=== PATIENT | male | born 1980 | race Caucasian/White ===

== ENCOUNTER 2023-01-28 06:36 | Outpatient (OUT) | payer OTHER, SELFPAY ==
[2023-01-28 06:51] LABS: Basophils Absolute Auto 0.1 10^3/uL (0.0-0.1); Basophils Percent Auto 1.7 % (0.2-2.0); Eosinophils Absolute Auto 0.2 10^3/uL (0.0-0.7); Hematocrit 44.2 % (42.0-54.0); Hemoglobin 14.8 g/dL (14.0-18.0); Immature Granulocytes Abs Auto 0.02 10^3/uL (0.00-0.03); Immature Granulocytes Pct Auto 0.3 % (0.0-0.5); Lymphocytes Absolute Auto 2.1 10^3/uL (1.2-3.8); Lymphocytes Percent Auto 34.6 % (20.5-60.0); Mean Corpuscular HGB Conc 33.5 g/dL (29.9-35.2); Mean Corpuscular Volume 89.5 fL (80.0-94.0); Mean Platelet Volume 9.3 fL (9.5-13.5); Monocytes Absolute Auto 0.5 10^3/uL (0.3-0.8); Monocytes Percent Auto 8.1 % (1.7-12.0); Neutrophils Absolute Auto 3.1 10^3/uL (1.4-6.5); Neutrophils Percent Auto 52.3 % (43.0-75.0); Platelet Count 145 10^3/uL (150-450); Red Blood Count 4.94 10^6/uL (4.70-6.10); Red Cell Distribution Width 11.8 % (11.0-15.0); White Blood Count 5.9 10^3/uL (4.0-11.0)
[2023-01-28 07:00] LABS: Alanine Aminotransferase 25 U/L (16-63); Albumin Globulin Ratio 1.4; Albumin Level 4.2 g/dL (3.4-5.0); Alkaline Phosphatase 72 U/L (46-116); Anion Gap 7.2; Aspartate Amino Transferase 16 U/L (15-37); BUN Creatinine Ratio 21.1; Bilirubin Total 0.7 mg/dL (0.2-1.0); Calcium 8.7 mg/dL (8.5-10.1); Chloride 104 mmol/L (98-107); Chol HDL Ratio 4.2; Cholesterol 189 mg/dL (<=200); Estimated GFR (African America >60 (>=60); Estimated GFR (Non-African Ame >60 (>=60); Globulin 3.1 g/dL; Glucose 83 mg/dL (74-106); HDL Cholesterol 45 mg/dL (40-60); LDL Cholesterol Calculated 128.6 mg/dL; Potassium 4.2 mmol/L (3.5-5.1); Sodium 138 mmol/L (136-145); Total Protein 7.3 g/dL (6.4-8.2); Triglycerides 77 mg/dL (<=150); VLDL CHOLESTEROL 15.4 mg/dL
== END 2023-01-28 06:37 | disposition home or self-care (01) ==
LOC: LAB 06:36
PROVIDERS: PCP Internal Medicine; Visit Provider Internal Medicine
DX: Z00.00 Encounter for general adult medical examination without abnormal findings (principal)
CPT/HCPCS: 36415; 80053; 80061; 85025

== ENCOUNTER 2024-04-25 06:34 | Outpatient (OUT) | payer OTHER, SELFPAY ==
--- OUTSIDE RECORDS SUMMARY | 2024-04-25 06:37 | XMS_ITS | CCD ---
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 Name Role Phone PHYSICIAN, DEFAULT Unavailable Unavailable PHYSICIAN, DEFAULT Unavailable Unavailable MICHEL, ARJUN Unavailable Unavailable MICHEL, DR BUCKLEY Attending Unavailable BALL, DR BUCKLEY Admitting Unavailable BALL, DR BUCKLEY Primary Care Unavailable MICHEL, DR BUCKLEY Consulting Unavailable MICHEL, DR BUCKLEY Admitting Unavailable BALL, DR BUCKLEY Primary Care Unavailable MICHEL, DR BUCKLEY Consulting Unavailable MICHEL, DR BUCKLEY Attending Unavailable Michel, Arjun Unavailable Veronica Jacobson Unavailable Subha Mcclain Unavailable Arjun Pearson MD Primary Care Provider RAMMARCIN HARRISON Attending Unavailable RAMBASEK, MARCIN Ervin Attending Unavailable RAMBASEK, MARCIN Ervin Attending Unavailable RAMBASEK, MARCIN Ervin Attending Unavailable IRMA ORTIZ Attending Unavailable ARJUN PEARSON Referring Unavailable RAMBASEKMARCIN Attending Unavailable Allergies Allergy Classification Reported Allergen(s) Allergy Type Date of Onset Reaction(s) Facility (1 source) patient allergy list reviewed by nurse or physicia Propensity to adverse reactions 8 Comment:Done [employer] Other Medications Current Medications Medication Drug Class(es) Dates Sig (Normalized) Sig (Original) amoxicillin 875 mg / clavulanate 125 mg oral tablet (16 sources) Penicillin-class Antibacterial Start: 04-02-2024 End: 04-12-2024 take 1 tablet by mouth in the morning amoxicillin-clav ulanate (Augmentin) 875-125 MG tablet Indications: Acute maxillary sinusitis, 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 Take 1 tablet (875 mg) by mouth in the morning and 1 tablet (875 mg) before bedtime. Do all this for 10 days. 20 tablet 04/02/2024 04/12/2024 Active Start: 09-17-2022 take 1 tablet by monika th every twelve hours Amoxicillin-Pot Clavulanate 875-125 MG 1 tablet Orally every 12 hrs for 10 day(s) Sep, Not-Taking/PRN Start: 09-17-2022 take 1 tablet by monika th every twelve hours 1.5 ml fremanezumab-vfrm 150 mg/ml prefilled syringe (8 sources) Start: 04-24-2024 Fremanezumab-V frm (Ajovy Autoinjector) 225 mg/1.5 mL auto-injector Active 225 MG SUBCUT every month April 24, 2024 12:00am Start: 03-26-2024 fremanezumab ( Ajovy) 225 MG/1.5ML auto-injector Indications: Chronic migraine with aura and with status migrainosus, not intractable (CMS/HCC) Inject 1 pen (225 mg) under the skin every 30 (thirty) days 1.68 mL 11 03/26/2024 Active Completed/Discontinued Medications Medication Drug Class(es) Dates Sig (Normalized) Sig (Original) azithromycin 250 mg oral tablet (19 sources) Macrolide Antimicrobial Start: 07-20-2022 Azithromycin 250 MG as directed Orally daily for 5 days Jul, Not-Taking/PRN cefuroxime 250 mg oral tablet (20 sources) Cephalosporin Antibacterial Start: 10-05-2022 take 1 tablet by mouth every twelve hours Cefuroxime Axetil 250 MG 1 tablet Orally every 12 hrs for 14 days Sep, Not-Taking/PRN Start: 08-16-2022 take 1 tablet by monika th every twelve hours Cefuroxime Axetil 500 MG 1 tablet Orally every 12 hrs for 10 days Feb, Active doxycycline hyclate 100 mg oral capsule (17 sources) Tetracycline-class Drug Start: 09-07-2023 End: 03-13-2024 take 1 capsule by mouth twice daily Doxycycline Hyclate 100 mg capsule Discontinued 100 MG PO Twice daily 22 10September 06, 2023 11:00pm March 13, 2024 2:30pm loratadine 10 mg oral tablet (15 sources) Start: 03-13-2024 End: 03-13-2024 take 1 tablet by mouth once daily Loratadine (Claritin) 10 mg tablet Discontinued 10 MG PO Daily March 13, 2024 12:00am March 13, 2024 2:34pm metoprolol tartrate 25 mg oral tablet (4 sources) beta-Adrenergic Leo Start: 03-13-2024 End: 04-24-2024 take 1 tablet by mouth twice daily Metoprolol Tartrate 25 mg tablet Discontinued 25 MG PO Twice daily 60 30 March 13, 2024 12:00am April 24, 2024 9:32am omeprazole 40 mg delayed release oral capsule (13 sources) Proton Pump Inhibitor Start: 03-13-2024 End: 04-02-2024 take 1 capsule by mouth once daily Omeprazole 40 mg capsule,delayed release(DR/EC) Discontinued 40 MG PO Daily March 13, 2024 12:00am March 13, 2024 2:34pm rizatriptan 10 mg oral tablet (9 sources) Serotonin-1b and Serotonin-1d Receptor Agonist Start: 03-13-2024 End: 04-24-2024 take 1 tablet by mouth every two hours Rizatriptan 10 mg tablet Discontinued 0 PO .COMPLEX 7 March 13, 2024 12:00am April 24, 2024 9:32am take 1 tab at onset of headache; if no relief may repeat 1 tab after at least 2 hrs; max = 3 tabs/24 hr PO rizatriptan (Max alt) 10 MG tablet Take 10 mg by mouth 1 (one) time if needed for migraine May repeat in 2 hours if unresolved. Do not exceed 30 mg in 24 hours. Active Problems Active Problems Problem Classification Problem Date Documented Date Episodic/Chronic Cardiac dysrhythmias (12 sources) Premature beats; Translations: [Other premature beats] Onset: 10-10-2015 Chronic Coagulation and hemorrhagic disorders (9 sources) Primary thrombocytopenia; Translations: [Primary thrombocytopenia, unspecified] Onset: 12-13-2016 Chronic Esophageal disorders (6 sources) Gastro-esophageal reflux disease with esophagitis; Translations: [Gastro-esophageal reflux disease with esophagitis, without bleeding] Chronic Esophageal disorders (5 sources) Esophageal disorders; Translations: [Gastro-esophageal reflux disease with esophagitis, without bleeding] Headache; including migraine (6 sources) Transformed migraine; Translations: [Chronic migraine with aura and with status migrainosus, not intractable (CMS/HCC)] 03-20-2024 Chronic Heart valve disorders (4 sources) Mitral valve disorder; Translations: [Nonrheumatic mitral (valve) prolapse] Chronic Immunizations and screening for infectious disease (4 sources) Vaccination given; Translations: [Encounter for immunization] Episodic Other acquired deformities (1 source) Kyphoscoliosis and scoliosis; Translations: [Other kyphoscoliosis and scoliosis] Onset: 10-10-2013 Chronic Other congenital anomalies (1 source) Congenital spondylolysis of lumbosacral region; Translations: [Congenital spondylolysis, lumbosacral region] Onset: 02-16-2017 Chronic Other nervous system disorders (4 sources) Ataxia; Translations: [Ataxia, unspecified] 04-23-2024 Episodic Other nervous system disorders (4 sources) Paresthesia; Translations: [Paresthesia of skin] 04-23-2024 Episodic Other nervous system disorders (1 source) Paresthesia of skin; Translations: [Disturbance of skin sensation] 04-24-2024 Episodic Other upper respiratory disease (20 sources) Allergic rhinitis due to pollen; Translations: [Allergic rhinitis due to pollen] 06-03-2023 Chronic Other upper respiratory disease (20 sources) Allergic rhinitis due to pollen; Translations: [Allergic rhinitis due to pollen] Chronic Other upper respiratory disease (5 sources) Allergic rhinitis; Translations: [Allergic rhinitis, cause unspecified] Onset: 10-10-2015 Chronic Other upper respiratory infections (20 sources) Acute recurrent maxillary sinusitis; Translations: [Acute maxillary sinusitis, unspecified] Onset: 09-05-2013 Resolved: 11-23-2021 Episodic Residual codes; unclassified (4 sources) Postprocedural state finding; Translations: [Other specified postprocedural states] Episodic Spondylosis; intervertebral disc disorders; other back problems (15 sources) Lumbosacral spondylosis without myelopathy; Translations: [Spondylosis without myelopathy or radiculopathy, lumbar region] Chronic Unclassified (3 sources) CONTACT W/AND (SUSP) EXPOS COVID-19; Translations: [CONTACT W/AND (SUSP) EXPOS COVID-19] Onset: 05-15-2021 Unclassified (1 source) Sterilization procedure; Translations: [Sterilization] Onset: 05-22-2018 Past or Other Problems Problem Classification Problem Date Documented Da te Episodic/Chronic Allergic reactions (6 sources) Contact dermatitis; Translations: [Contact dermatitis and other eczema, due to unspecified cause] Onset: 10-28-2016 Episodic Bacterial infection; unspecified site (1 source) Bacterial infectious disease; Translations: [Bacterial infection, unspecified, in conditions classified elsewhere and of unspecified site] Onset: 12-09-2017 Episodic Cardiac dysrhythmias (4 sources) Palpitations; Translations: [Palpitations] Onset: 03-11-2014 Episodic Heart valve disorders (4 sources) O/E - cardiac murmur; Translations: [Cardiac murmur, unspecified] Onset: 03-11-2014 Episodic Other acquired deformities (4 sources) Acquired spondylolisthesis; Translations: [Spondylolysis, lumbar region] Resolved: 12-23-2021 Episodic Other connective tissue disease (1 source) Spasm; Translations: [Spasm of muscle] Onset: 02-03-2017 Episodic Skin and subcutaneous tissue infections (1 source) Cellulitis and abscess of hand excluding digits; Translations: [Cellulitis and abscess of hand, except fingers and thumb] Onset: 12-09-2017 Episodic Spondylosis; intervertebral disc disorders; other back problems (5 sources) Low back pain; Translations: [Low back pain, unspecified] Onset: 10-10-2013 Resolved: 11-23-2021 Episodic Unclassified (1 source) CONTACT W/AND (SUSP) EXPOS COVID-19; Translations: [CONTACT W/AND (SUSP) EXPOS COVID-19] Onset: 05-13-2021 Unclassified (4 sources) Exposure to acute respiratory syndrome coronavirus 2; Translations: [Contact with and (suspected) exposure to COVID-19] Resolved: 11-23-2021 Unclassified (1 source) Contact with and (suspected) exposure to covid-19 Z20.822 Viral infection (5 sources) Disease caused by 2019-nCoV; Translations: [COVID-19] Results Test Name Value Interpretation Reference Range Facility EMG 2 Extremitieson 04-24-19 25 Normal EMG of the right upper and lower extremity [facility] NVC 11-12 Nerveson 5 Normal EMG of the right upper and lower extremity [facility] COVID Quick Testingon 2022 Result Negative [employer] Other SARS-CoV-2 (COVID-19) RNA NA A+probe Ql (Resp)on 04-03-2023 SARS-CoV-2 (COVID-19) RNA TYRONE+probe Ql (Unsp spec) Positive [employer] Other CBC AUTO DIFFon 12-24-2021 BASO # 0.1 103/ul Normal 0.0-0.1 [facility] Comment on above: Performed By: #### C BC #### [facility] [address] [address] [address] Pam French Basophils/100 WBC (Bld) 1.5 % Normal 0.2-2.0 [facility] Comment on above: Performed By: #### C BC #### [facility] [address] [address] [address] Pam French EO # 0.2 103/ul Normal 0.0-0.7 [facility] Comment on above: Performed By: #### C BC #### [facility] [address] [address] [address] Pam French Eosinophils/100 WBC (Bld) 2.5 % Normal 0.9-7.0 [facility] Comment on above: Performed By: #### C BC #### [facility] [address] [address] [address] Pam French Erythrocyte distribution width (RBC) [Ratio] 12.3 % Normal 11.0-15.0 [facility] Comment on above: Performed By: #### C BC #### [facility] [address] [address] [address] Pam French Hematocrit (Bld) [Volume fraction] 44.0 % Normal 42.0-54.0 [facility] Comment on above: Performed By: #### C BC #### [facility] [address] [address] [address] Pam French Hemoglobin (Bld) [Mass/Vol] 14.5 g/dL Normal 14.0-18.0 [facility] Comment on above: Performed By: #### C BC #### [facility] [address] [address] [address] Pam French IG # 0.01 10e3/ul Normal 0.00-0.03 [facility] Comment on above: Performed By: #### C BC #### [facility] [address] [place] [address] Dr. Pam French IG % 0.2 % Normal 0.0-0.5 [facility] Comment on above: Performed By: #### C BC #### [facility] [address] [place] [address] Dr. Pam French LYMPH # 2.2 103/ul Normal 1.2-3.8 [facility] Comment on above: Performed By: #### C BC #### [facility] [address] [place] [address] Dr. Pam French Lymphocytes/100 WBC (Bld) 36.8 % Normal 20.5-60.0 [facility] Comment on above: Performed By: #### C BC #### [facility] [address] [place] [address] Dr. Pam French MANUAL DIFF REQ NO Normal [facility] Comment on above: Performed By: #### C BC #### [facility] [address] [place] [address] Dr. Pam French MCH (RBC) [Entitic mass] 29.7 pg Normal 25.9-34.0 [facility] Comment on above: Performed By: #### C BC #### [facility] [address] [place] [address] Dr. Pam French MCHC (RBC) [Mass/Vol] 33.0 g/dL Normal 29.9-35.2 [facility] Comment on above: Performed By: #### C BC #### [facility] [address] [place] [address] Dr. Pam French MCV (RBC) [Entitic vol] 90.2 fL Normal 80.0-94.0 [facility] Comment on above: Performed By: #### C BC #### [facility] [address] [place] [address] Dr. Pam French MONO # 0.6 103/ul Normal 0.3-0.8 [facility] Comment on above: Performed By: #### C BC #### [facility] [address] [address] [address] Pam French Monocytes/100 WBC (Bld) 9.7 % Normal 1.7-12.0 [facility] Comment on above: Performed By: #### C BC #### [facility] [address] [address] [address] Pam French NEUT # 3.0 103/ul Normal 1.4-6.5 [facility] Comment on above: Performed By: #### C BC #### [facility] [address] [address] [address] Pam French Neutrophils/100 WBC (Bld) 49.3 % Normal 43.0-75.0 [facility] Comment on above: Performed By: #### C BC #### [facility] [address] [place] [address] Dr. Pam French Platelet mean volume (Bld) [Entitic vol] 8.9 fL Critically low 9.5-13.5 [facility] Comment on above: Performed By: #### C BC #### [facility] [address] [place] [address] Dr. Pam French PLT 154 103/ul Normal 150-450 [facility] Comment on above: Performed By: #### C BC #### [facility] [address] [place] [address] Dr. Pam French RBC 4.88 106/ul Normal 4.70-6.10 [facility] Comment on above: Performed By: #### C BC #### [facility] [address] [place] [address] Dr. Pam French WBC 6.1 103/ul Normal 4.0-11.0 [facility] Comment on above: Performed By: #### C BC #### [facility] [address] [place] [address] Dr. Pam French LIPID PROFILEon 12-24-2021 CHOL-HDL RATIO NORM SEE BELOW Normal [facility] Comment on above: Result Comment: 3.3 - 4.4 LOW RISK 4.4 - 7.1 AVERAGE RISK 7.1 - 11.0 MODERATE RISK >11.0 HIGH RISK Performed By: #### C MP, LIPID #### [facility] [address] [address] [address] Pam French Cholesterol [Mass/Vol] 209 mg/dL Critically high <=200 [facility] Comment on above: Performed By: #### C MP, LIPID #### [facility] [address] [address] [address] Pam French Cholesterol in HDL [Mass/Vol] 42 mg/dL Normal 40-60 [facility] Comment on above: Performed By: #### C MP, LIPID #### [facility] [address] [address] [address] Pam French Cholesterol in LDL [Mass/Vol] 142.4 mg/dL Normal [facility] Comment on above: Performed By: #### C MP, LIPID #### [facility] [address] [place] [address] Dr. Pam French Cholesterol.total/C holesterol in HDL [Mass ratio] 5.0 {ratio} Normal [facility] Comment on above: Performed By: #### C MP, LIPID #### [facility] [address] [place] [address] Dr. Pam French HDL NORMAL > or = 60 mg/dl - LOW CARDIOVASCULAR RISK <40 mg/dl - HIGH CARDIOVASCULAR RISK Normal [facility] Comment on above: Performed By: #### C MP, LIPID #### [facility] [address] [place] [address] Dr. Pam French LDL CALC NORMAL SEE BELOW Normal [facility] Comment on above: Result Comment: <100 mg/dl OPTIMAL 100 - 129 mg/dl NEAR OR ABOVE OPTIMAL 130 - 159 mg/dl BORDERLINE HIGH 160 - 189 mg/dl HIGH >190 mg/dl VERY HIGH Performed By: #### C MP, LIPID #### [facility] [address] [place] [address] Dr. Pam French Triglyceride [Mass/Vol] 123 mg/dL Normal <=150 [facility] Comment on above: Performed By: #### C MP, LIPID #### [facility] [address] [place] [address] Dr. Pam French VLDL CALC 24.6 mg/dL Normal [facility] Comment on above: Performed By: #### C MP, LIPID #### [facility] [address] [place] [address] Dr. Pam French PROF 14(COMP METB)on 022 Albumin [Mass/Vol] 4.0 g/dL Normal 3.4-5.0 [facility] Comment on above: Performed By: #### C MP, LIPID #### [facility] [address] [place] [address] Dr. Pam French Albumin/Globulin [Mass ratio] 1.3 {ratio} Normal [facility] Comment on above: Performed By: #### C MP, LIPID #### [facility] [address] [place] [address] Dr. Pam French ALP [Catalytic activity/Vol] 66 U/L Normal 46-116 [facility] Comment on above: Performed By: #### C MP, LIPID #### [facility] [address] [place] [address] Dr. Pam French ALT [Catalytic activity/Vol] 29 U/L Normal 16-63 [facility] Comment on above: Performed By: #### C MP, LIPID #### [facility] [address] [place] [address] Dr. Pam French Anion gap [Moles/Vol] 9.4 mmol/L Normal [facility] Comment on above: Performed By: #### C MP, LIPID #### [facility] [address] [place] [address] Dr. Pam French AST [Catalytic activity/Vol] 16 U/L Normal 15-37 [facility] Comment on above: Performed By: #### C MP, LIPID #### [facility] [address] [place] [address] Dr. Pam French Bilirubin [Mass/Vol] 0.6 mg/dL Normal 0.2-1.0 [facility] Comment on above: Performed By: #### C MP, LIPID #### [facility] [address] [place] [address] Dr. Pam French Calcium [Mass/Vol] 8.9 mg/dL Normal 8.5-10.1 [facility] Comment on above: Performed By: #### C MP, LIPID #### [facility] [address] [place] [address] Dr. Pam French Chloride [Moles/Vol] 104 mmol/L Normal 98-107 [facility] Comment on above: Performed By: #### C MP, LIPID #### [facility] [address] [place] [address] Dr. Pam French CO2 [Moles/Vol] 30.5 mmol/L Normal 21.0-32.0 [facility] Comment on above: Performed By: #### C MP, LIPID #### [facility] [address] [place] [address] Dr. Pam French Creatinine [Mass/Vol] 1.08 mg/dL Normal 0.70-1.30 [facility] Comment on above: Performed By: #### C MP, LIPID #### [facility] [address] [place] [address] Dr. Pam French EGFR-AF MACEDONIAN >60 Normal >=60 [facility] Comment on above: Performed By: #### C MP, LIPID #### [facility] [address] [place] [address] Dr. Pam French EGFR-NON AF MACEDONIAN >60 Normal >=60 [facility] Comment on above: Performed By: #### C MP, LIPID #### [facility] [address] [place] [address] Dr. Pam French Globulin (S) [Mass/Vol] 3.0 g/dL Normal [facility] Comment on above: Performed By: #### C MP, LIPID #### [facility] [address] [place] [address] Dr. Pam French Glucose [Mass/Vol] 86 mg/dL Normal 74-106 [facility] Comment on above: Performed By: #### C MP, LIPID #### [facility] [address] [place] [address] Dr. Pam French Potassium [Moles/Vol] 3.9 mmol/L Normal 3.5-5.1 [facility] Comment on above: Performed By: #### C MP, LIPID #### [facility] [address] [place] [address] Dr. Pam French Protein [Mass/Vol] 7.0 g/dL Normal 6.4-8.2 [facility] Comment on above: Performed By: #### C MP, LIPID #### [facility] [address] [place] [address] Dr. Pam French Sodium [Moles/Vol] 140 mmol/L Normal 136-145 [facility] Comment on above: Performed By: #### C MP, LIPID #### [facility] [address] [place] [address] Dr. Pam French Urea nitrogen [Mass/Vol] 23.0 mg/dL Critically high 7.0-18.0 [facility] Comment on above: Performed By: #### C MP, LIPID #### [facility] [address] [place] [address] Dr. Pam French Urea nitrogen/Creatinine [Mass ratio] 21.3 mg/mg Normal [facility] Comment on above: Performed By: #### C MP, LIPID #### [facility] [address] [place] [address] Dr. Pam French [facility] SARS-CoV-2 (COVID-19) RNA TYRONE+probe Ql (Unsp spec) Not detected Normal NOT DETECTED [facility] Comment on above: Result Comment: This test is not yet approved or cleared by the [place] FDA. When there are no FDA-approved or cleared tests available, and other criteria are met, FDA can make tests available under an emergency access mechanism called an Emergency Use Authorization (EUA). The EUA for this test is supported by the [place] of Health and Human Service's (HHS's) declaration that circumstances exist to justify the emergency use of in vitro diagnostics for the detection and/or diagnosis of the virus that causes COVID-19. This EUA will remain in effect (meaning this test can be used) for the duration of the COVID-19 declaration justifying emergency of IVDs, unless it is terminated or revoked by FDA (after which the test may no longer be used). When diagnostic testing is negative, the possibility of a false negative should be considered in the context of a patient's recent exposures and the presence of clinical signs and symptoms consistent with SARS-CoV-2. Performed By: #### C [facility] #### [facility] [address] [place] [address] Dr. Pam French Vital Signs Date Time Vital Sign Value Performing Clinician Marki lity 04-24-2024 09:33-0500 Body height 185.42 cm [facility] 04-24-2024 09:33-0500 Body mass index (BMI) [Ratio] 21.7 kg/m2 [facility] 04-24-2024 09:33-0500 Body weight 74.89 kg [facility] 04-24-2024 09:33-0500 Diastolic blood pressure 72 mm[Hg] [facility] 04-24-2024 09:33-0500 Heart rate 59 /min [facility] 04-24-2024 09:33-0500 Respiratory rate 12 /min [facility] 04-24-2024 09:33-0500 Systolic blood pressure 116 mm[Hg] [facility] 04-23-2024 09:41-0500 Body mass index (BMI) [Ratio] 22.65 kg/m2 [email or web address] Work Phone: [facility] 04-23-2024 09:41-0500 Body weight 75.75 kg [email or web address] Work Phone: [facility] 04-23-2024 09:41-0500 Diastolic blood pressure 74 mm[Hg] [email or web address] Work Phone: [facility] 04-23-2024 09:41-0500 [facility] 63 /[facility] 04-23-2024 09:41-0500 SaO2% (BldA) [Mass fraction] 97 % Christopher Angel DO Work Phone: [facility] 04-23-2024 09:41-0500 Systolic blood pressure 120 mm[Hg] Christopher Angel DO Work Phone: [facility] 04-02-2024 15:35-0500 Body mass index (BMI) [Ratio] 21.97 kg/m2 Marcin Cannon MD Work Phone: [facility] 04-02-2024 15:35-0500 Body weight 73.48 kg Marcin Cannon MD Work Phone: [facility] 03-20-2024 10:48-0500 Diastolic blood pressure 68 mm[Hg] Christopher Angel DO Work Phone: [facility] 03-20-2024 10:48-0500 Heart rate 58 /min Christopher Angel DO Work Phone: [facility] 03-20-2024 10:48-0500 SaO2% (BldA) [Mass fraction] 97 % Christopher Angel DO Work Phone: [facility] 03-20-2024 10:48-0500 Systolic blood pressure 122 mm[Hg] Christopher Angel DO Work Phone: [facility] 03-13-2024 14:35-0500 Body height 185.42 cm [facility] 03-13-2024 14:35-0500 Body mass index (BMI) [Ratio] 21.4 kg/m2 [facility] 03-13-2024 14:35-0500 Body weight 73.53 kg [facility] 03-13-2024 14:35-0500 Diastolic blood pressure 74 mm[Hg] [facility] 03-13-2024 14:35-0500 Heart rate 62 /min [facility] 03-13-2024 14:35-0500 Respiratory rate 12 /min [facility] 03-13-2024 14:35-0500 Systolic blood pressure 137 mm[Hg] [facility] 04-03-2023 11:10-0500 Body height 185.42 cm Subha Mcclain Other [facility] 04-03-2023 11:10-0500 Body mass index (BMI) [Ratio] 23.48 kg/m2 Subha Mcclain Other [employer] Other 04-03-2023 11:10-0500 Body temperature 98.3 [degF] Subha Mcclain Other [employer] Other 04-03-2023 11:10-0500 Body weight 80.74 kg Subha Mcclain Other [employer] Other 04-03-2023 11:10-0500 Body weight 80.73 kg [facility] 04-03-2023 11:10-0500 Diastolic blood pressure 74 mm[Hg] Subha Mcclain Other [facility] 04-03-2023 11:10-0500 Respiratory rate 18 /min Subha Mcclain Other [employer] Other 04-03-2023 11:10-0500 SaO2% (BldA) [Mass fraction] 99 % Subha Mcclain Other [employer] Other 04-03-2023 11:10-0500 Systolic blood pressure 146 mm[Hg] Subha Mcclain Other [facility] 01-27-2023 09:15-0400 Body height 185.42 cm Arjun Ball Other [employer] Other 01-27-2023 09:15-0400 Body mass index (BMI) [Ratio] 22.9 kg/m2 Arjun Ball Other [employer] Other 01-27-2023 09:15-0400 Body weight 78.74 kg Arjun Ball Other [employer] Other 01-27-2023 09:15-0400 Diastolic blood pressure 73 mm[Hg] Arjun Pearson Other [employer] Other 01-27-2023 09:15-0400 Respiratory rate 12 /min Arjun Pearson Other [employer] Other 01-27-2023 09:15-0400 Systolic blood pressure 124 mm[Hg] Arjun Pearson Other [employer] Other Encounters Encounter Date Encounter Type Care Provider Facility Start: 04-24-2024 End: 04-24-2024 Bamboo flowsheet Christfortunatoer Angel DO Work Phone: [facility] Start: 04-24-2024 End: 04-24-2024 Bamboo flowsheet Irma Ortiz DO Work Phone: [facility] Start: 04-24-2024 End: 04-24-2024 ambulatory [facility] Work Phone: Start: 04-24-2024 End: 04-24-2024 Encounter for general adult medical examination without abnormal findings [facility] Start: 04-24-2024 End: 04-24-2024 Patient encounter procedure [facility] Work Phone: Comment on above: Paresthesia Start: 04-23-2024 End: 04-23-2024 Bamboo flowsheet Christopher Angel DO Work Phone: [facility] Start: 04-23-2024 End: 04-23-2024 Bamboo flowsheet Christopher Angel DO Work Phone: [facility] Start: 04-23-2024 End: 04-23-2024 Office outpatient visit 25 minutes Christalex Ortiz DO Work Phone: [facility] Comment on above: Ataxia (Primary Dx); Paresthesia; Chronic migraine with aura and with status migrainosus, not intractable (CMS/HCC) Start: 04-21-2024 Patient encounter status [facility] Start: 04-02-2024 End: 04-02-2024 Office outpatient visit 15 minutes Marcin Cannon MD Work Phone: [facility] Comment on above: Acute maxillary sinu sitis, 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 (Primary Dx) Start: 04-02-2024 End: 04-02-2024 ambulatory MARCIN CANNON Not Available Start: 03-30-2024 End: 03-30-2024 Patient encounter procedure [facility] Work Phone: Start: 03-20-2024 End: 03-20-2024 Office outpatient new 30 minutes Irma Ortiz DO [facility] Comment on above: Chronic migraine wit h aura and with status migrainosus, not intractable (CMS/HCC) (Primary Dx) Start: 03-20-2024 End: 03-20-2024 ambulatory IRMA ORTIZ Not Available Start: 03-16-2024 End: 03-16-2024 Patient encounter procedure [facility] Work Phone: Start: 03-13-2024 End: 03-13-2024 Patient encounter procedure [facility] Work Phone: Start: 03-02-2024 End: 03-02-2024 Patient encounter procedure [facility] Work Phone: Start: 02-17-2024 End: 02-17-2024 ambulatory [facility] Work Phone: Start: 02-17-2024 End: 02-17-2024 Patient encounter procedure [facility] Work Phone: Start: 02-06-2024 End: 02-06-2024 ambulatory [facility] Work Phone: Start: 02-06-2024 End: 02-06-2024 Patient encounter procedure [facility] Work Phone: Start: 01-23-2024 End: 01-23-2024 ambulatory [facility] Work Phone: Start: 01-23-2024 End: 01-23-2024 Patient encounter procedure [facility] Work Phone: Start: 01-09-2024 End: 01-09-2024 ambulatory [facility] Work Phone: Start: 01-09-2024 End: 01-09-2024 Patient encounter procedure [facility] Work Phone: Start: 12-27-2023 End: 12-27-2023 ambulatory [facility] Work Phone: Start: 12-27-2023 End: 12-27-2023 Patient encounter procedure [facility] Work Phone: Start: 12-16-2023 End: 12-16-2023 ambulatory [facility] Work Phone: Start: 12-16-2023 End: 12-16-2023 Patient encounter procedure [facility] Work Phone: Start: 12-02-2023 End: 12-02-2023 ambulatory [facility] Work Phone: Start: 12-02-2023 End: 12-02-2023 Patient encounter procedure [facility] Work Phone: Start: 11-25-2023 End: 11-25-2023 ambulatory [facility] Work Phone: Start: 11-25-2023 End: 11-25-2023 Patient encounter procedure [facility] Work Phone: Start: 11-11-2023 End: 11-11-2023 ambulatory [facility] Work Phone: Start: 11-11-2023 End: 11-11-2023 Patient encounter procedure [facility] Work Phone: Start: 10-28-2023 End: 10-28-2023 ambulatory [facility] Work Phone: Start: 10-28-2023 End: 10-28-2023 Patient encounter procedure [facility] Work Phone: Start: 10-17-2023 End: 10-17-2023 ambulatory [facility] Work Phone: Start: 10-17-2023 End: 10-17-2023 Patient encounter procedure [facility] Work Phone: Start: 10-11-2023 End: 10-11-2023 ambulatory [facility] Work Phone: Start: 10-11-2023 End: 10-11-2023 Patient encounter procedure [facility] Work Phone: Start: 09-30-2023 End: 09-30-2023 ambulatory [facility] Work Phone: Start: 09-30-2023 End: 09-30-2023 Patient encounter procedure [facility] Work Phone: Start: 09-22-2023 End: 09-22-2023 ambulatory [facility] Work Phone: Start: 09-22-2023 End: 09-22-2023 Patient encounter procedure [facility] Work Phone: Start: 09-12-2023 End: 09-12-2023 ambulatory [facility] Work Phone: Start: 09-12-2023 End: 09-12-2023 Patient encounter procedure [facility] Work Phone: Start: 09-07-2023 End: 09-07-2023 ambulatory [facility] Work Phone: Start: 09-07-2023 End: 09-07-2023 Patient encounter procedure [facility] Work Phone: Start: 08-30-2023 End: 08-30-2023 ambulatory [facility] Work Phone: Start: 08-30-2023 End: 08-30-2023 Patient encounter procedure [facility] Work Phone: Start: 08-22-2023 End: 08-22-2023 ambulatory [facility] Work Phone: Start: 08-22-2023 End: 08-22-2023 Patient encounter procedure [facility] Work Phone: Start: 08-12-2023 End: 08-12-2023 ambulatory [facility] Work Phone: Start: 08-12-2023 End: 08-12-2023 Patient encounter procedure [facility] Work Phone: Start: 08-02-2023 End: 08-02-2023 ambulatory [facility] Work Phone: Start: 08-02-2023 End: 08-02-2023 Patient encounter procedure [facility] Work Phone: Start: 07-29-2023 End: 07-29-2023 ambulatory [facility] Work Phone: Start: 07-29-2023 End: 07-29-2023 Patient encounter procedure [facility] Work Phone: Start: 07-28-2023 End: 07-28-2023 ambulatory MARCIN E RAMBASEK Not Available Start: 07-27-2023 End: 07-27-2023 ambulatory MARCIN E RAMBASEK Not Available Start: 07-22-2023 End: 07-22-2023 ambulatory [facility] Work Phone: Start: 07-22-2023 End: 07-22-2023 Patient encounter procedure [facility] Work Phone: Start: 07-20-2023 End: 07-20-2023 ambulatory [facility] Work Phone: Start: 07-20-2023 End: 07-20-2023 Patient encounter procedure [facility] Work Phone: Start: 06-29-2023 End: 06-29-2023 ambulatory [facility] Work Phone: Start: 06-29-2023 End: 06-29-2023 Patient encounter procedure [facility] Work Phone: Start: 06-20-2023 End: 06-20-2023 Patient encounter procedure [facility] Work Phone: Start: 06-13-2023 End: 06-13-2023 Patient encounter procedure [facility] Work Phone: Start: 06-10-2023 End: 06-10-2023 Patient encounter procedure [facility] Work Phone: Start: 06-06-2023 End: 06-06-2023 Patient encounter procedure [facility] Work Phone: Start: 06-03-2023 End: 06-03-2023 ambulatory [facility] Work Phone: Start: 06-03-2023 End: 06-03-2023 Patient encounter procedure [facility] Work Phone: Start: 05-30-2023 End: 05-30-2023 ambulatory MARCIN CANNON Not Available Start: 05-06-2023 End: 05-06-2023 ambulatory Arjun Pearson Other [employer] Other Start: 05-06-2023 Nursing evaluation o f patient and report Arjun Pearson [facility] Start: 05-02-2023 End: 05-02-2023 ambulatory MARCIN CANNON Not Available Start: 04-03-2023 End: 04-03-2023 ambulatory Subha Mcclain Other [employer] Other Start: 04-03-2023 Office outpatient visit 15 minutes Subhamarina Mcclain [facility] Start: 04-03-2023 End: 04-03-2023 Patient encounter procedure [facility] Work Phone: Start: 03-18-2023 End: 03-18-2023 ambulatory Arjun Pearson Other [employer] Other Start: 03-18-2023 Nursing evaluation o f patient and report Arjun Pearson [facility] Start: 02-18-2023 End: 02-18-2023 ambulatory Arjun Pearson Other [employer] Other Start: 02-18-2023 Nursing evaluation o f patient and report Arjun Pearson [facility] Start: 01-28-2023 End: 01-28-2023 ambulatory Arjun Pearson Other [employer] Other Start: 01-28-2023 Telephone encounter Arjun Pearson [facility] Start: 01-27-2023 End: 01-27-2023 ambulatory Arjun Pearson Other [employer] Other Start: 01-27-2023 Encounter for genera l adult medical examination without abnormal findings Arjun Pearson [facility] Start: 01-27-2023 Periodic preventive med est patient 40-64yrs Arjun Pearson [facility] Start: 01-07-2023 End: 01-07-2023 ambulatory Arjun Pearson Other [employer] Other Start: 01-07-2023 Nursing evaluation o f patient and report Arjun Pearson [facility] Start: 11-26-2022 End: 11-26-2022 ambulatory Arjun Pearson Other [employer] Other Start: 11-26-2022 Nursing evaluation o f patient and report Arjun Pearson [facility] Start: 11-18-2022 End: 11-18-2022 ambulatory Arjun Pearson Other [employer] Other Start: 11-18-2022 Telephone encounter Arjun Pearson [facility] Start: 11-05-2022 End: 11-05-2022 ambulatory Arjun Pearson Other [employer] Other Start: 11-05-2022 Nursing evaluation o f patient and report Arjun Pearson [facility] Start: 10-22-2022 End: 10-22-2022 ambulatory Arjun Peasron Other [employer] Other Start: 10-22-2022 Nursing evaluation o f patient and report Arjun Pearson [facility] Start: 10-05-2022 End: 10-05-2022 ambulatory Arjun Pearson Other [employer] Other Start: 10-05-2022 Office outpatient visit 15 minutes Arjun Pearson [facility] Start: 10-05-2022 Telephone encounter Arjun Pearson [facility] Start: 09-17-2022 End: 09-17-2022 ambulatory Veronica Jacobson Other [employer] Other Start: 09-17-2022 Telephone encounter Veronica Indira [facility] Start: 09-13-2022 End: 09-13-2022 ambulatory Arjun Pearson Other [employer] Other Start: 09-13-2022 Nursing evaluation o f patient and report Arjun Pearson [facility] Start: 08-17-2022 End: 08-17-2022 ambulatory Arjun Pearson Other [employer] Other Start: 08-17-2022 Telephone encounter Arjun Pearson [facility] Start: 08-16-2022 End: 08-16-2022 ambulatory Arjun Pearson Other [employer] Other Start: 08-16-2022 Office outpatient visit 15 minutes Arjun Pearson [facility] Start: 07-27-2022 End: 07-27-2022 ambulatory Arjun Pearson Other [employer] Other Start: 07-27-2022 Nursing evaluation o f patient and report Arjun Pearson [facility] Start: 07-20-2022 End: 07-20-2022 ambulatory Arjun Pearson Other [employer] Other Start: 07-20-2022 Office outpatient visit 15 minutes Arjun eParson [facility] Start: 06-09-2022 End: 06-09-2022 ambulatory Arjun Pearson Other [employer] Other Start: 06-09-2022 Nursing evaluation o f patient and report Arjun Pearson [facility] Start: 05-18-2022 End: 05-18-2022 ambulatory Arjun Pearson Other [employer] Other Start: 05-18-2022 Nursing evaluation o f patient and report Arjun Pearson [facility] Start: 04-20-2022 End: 04-20-2022 ambulatory Arjun Pearson Other [employer] Other Start: 04-20-2022 Nursing evaluation o f patient and report Arjun Pearson [facility] Start: 12-27-2021 Encounter for genera l adult medical examination without abnormal findings DR ARJUN PEARSON [facility] Start: 12-24-2021 End: 12-25-[address] ARJUN PEARSON Facility:[facility] Start: 12-24-2021 End: 12-25-2021 Encounter for general adult medical examination without abnormal findings DR ARJUN PEARSON Facility:[facility] Start: 12-22-2021 Adult health examination Arjun Pearson Other [employer] Other Start: 05-13-2021 End: 05-13-[address] ARJUN PEARSON Facility: Start: 08-04-2017 End: 08-05-2017 Ambulatory DEFAULT PHYSICIAN Facility:[facility] Procedures Date Procedure Procedure Detail Performing Clinician Start: 04-24-2024 End: 04-24-2024 Needle emg ea extremty w/paraspinl area complete Irma Ortiz DO Work Phone: Start: 10-10-2015 General examination of patient Arjun Pearson Other Depression screening Vern Pearson Other Plan of Treatment Date Care Activity Detail Author Start: 08-01-2024 End: 08-01-2024 Patient encounter procedure 08/01/2024 9:20 AM EDT Office Visit [facility] [address] [place] [id number] Marcin Cannon MD [address] [place] [address] [facility] Start: 05-21-2024 End: 05-21-2024 Patient encounter procedure 05/21/2024 1:30 PM EST Office Visit [facility] [address] [place] [address] Irma Ortiz DO [address] [place] [address] [id number] [facility] Start: 04-24-2024 End: 04-24-2024 Patient encounter procedure [facility] Comment on above: Arrived Start: 04-23-2024 End: 04-23-2025 EMG 2 Extremities EMG 2 Extremities Neurology Routine Paresthesia Expected: 04/23/2024, Expires: 04/23/2025 [facility] Comment on above: Expected: 04/23/2024 , Expires: 04/23/2025 Start: 04-23-2024 End: 04-23-2025 MR Brain WO and W contrast IV MR brain w and wo contrast routine Imaging Routine Ataxia Expected: 04/23/2024, Expires: 04/23/2025 [facility] Work Phone: Comment on above: Expected: 04/23/2024 , Expires: 04/23/2025 Start: 04-23-2024 End: 04-23-2024 Patient encounter procedure [facility] Comment on above: Arrived Start: 12-11-2023 Influenza vaccination Influenza Vacc ine (#1) [facility] Comprehensive metabo lic 2000 panel - Serum or Plasma [facility] Immunizations Immunization Date Immunization Notes Care Provider Fa stefany 05-06-2023 ALLERGY Injection (1 inj)-pt brought own med Arjun Ball Other [employer] Other 04-12-2023 ALLERGY Injection (1 inj)-pt brought own med Arjun Ball Other [employer] Other 03-18-2023 ALLERGY Injection (1 inj)-pt brought own med Arjun Ball Other [employer] Other 02-18-2023 ALLERGY Injection (1 inj)-pt brought own med Arjun Ball Other [employer] Other 01-27-2023 ALLERGY Injection (1 inj)-pt brought own med Arjun Ball Other [employer] Other 01-07-2023 ALLERGY Injection (1 inj)-pt brought own med Arjun Ball Other [employer] Other 11-26-2022 ALLERGY Injection (1 inj)-pt brought own med Arjun Ball Other [employer] Other 11-05-2022 ALLERGY Injection (1 inj)-pt brought own med Arjun Ball Other [employer] Other 10-22-2022 ALLERGY Injection (1 inj)-pt brought own med Arjun Ball Other [employer] Other 10-04-2022 ALLERGY Injection (1 inj)-pt brought own med Arjun Pearson Other [employer] Other 01-25-2022 influenza virus vaccine, unspecified formulation Irma Ortiz DO Work Phone: [facility] 12-23-2020 influenza virus vaccine, split virus (incl. purified surface antigen) Arjun Pearson Other [employer] Other 12-23-2020 influenza virus vaccine, unspecified formulation [facility] 12-19-2019 influenza virus vaccine, split virus (incl. purified surface antigen) Arjun Michel Other [employer] Other 12-19-2019 influenza virus vaccine, unspecified formulation [facility] Payers Date Payer Category Payer Private Health Insurance [facility] [place] [id number] 1980 Unknown [id number] [id number] 1979 Unknown [id number] 1979 Unknown [id number] [id number] 1979 Unknown [id number] 1979 Unknown [id number] 1979 Unknown [id number] 1979 Unknown [id number] 1979 Unknown [id number] 1960 Private Health Insurance [id number] Unknown Social History Date Type Detail Facility Start: 03-20-2024 End: 04-23-2024 Sex Assigned At [facility] [employer] Other Start: 1980 Sex Assigned At Male F [facility] Tobacco smoking stat us OKIS Unknown if ever smoked [facility] Work Phone: Start: 02-17-2024 End: 04-24-2024 Sex Male (finding) [facility] Start: 05-02-2023 End: 04-24-2024 Tobacco smoking status NHIS Never smoked tobacco [facility] Start: 05-02-2023 Tobacco use and exposure Smokeless tobacco non-user [facility] Start: 03-20-2024 End: 04-23-2024 Alcoholic beverage intake Lifetime non-drinker (finding) [facility] Start: 03-20-2024 End: 04-23-2024 History of Social function [facility] Start: 1980 Sex assigned at Not on file N [facility] Clinical Notes 02-09-2017 to 04-24-2024 Irma Ortiz DO - 04/24/2024 1:00 PM Nori Ortiz DO - 04/23/2024 9:45 AM Sonny Cannon MD - 04/02/2024 3:40 PM Nori Ortiz DO - 03/20/2024 11:00 AM EST Note Date & Type Note Facility 04-24-2024 History of Presen t illness Narrative Images from the original note were not included. Reason for Appointment: EMG Patient: Nicolás Bell : 1980 EMG Computer: [employer] Referring Physician: Dr. Irma Ortiz EMG: [employer] communications tower technician: Don Torres RT(R) Office Location: [place] Reason for EMG: c/o numbness/tingling in bilateral arms/hands & bilateral feet/legs. Hx of surgery to low back. No hx of DM. Not on blood thinners. Comments: Procedure was explained to the patient who expressed understanding. Patient appeared to have tolerated the test well despite some discomfort due to the nature of the test. documented in this encounter [facility] 04-23-2024 History of Presen t illness Narrative Images from the original note were not included. Chief Complaint: headaches Subjective Nicolás Bell, 43 y.o., male Patient presents today for a follow up for migraines. He started ajovy about one month ago and is no longer taking the metoprolol. Patient states since starting ajovy he has noticed they are becoming less severe. He is still having about 10-12 migraine days a month. These are now located on the top of his head. He reports constant tingling in bilateral hands and feet. He can also have this on the top of his head which can radiate down his entire face. He states he can also feel this in the top row of his teeth. He describes this as pins and needles. He states this has been happening since about February. He thought this was related to his migraines but since these are less severe he is noticing the tingling more. Review of Systems Constitutional: Negative for appetite change, fatigue and fever. Respiratory: Negative for cough, shortness of breath and wheezing. Cardiovascular: Negative for chest pain, palpitations and leg swelling. Gastrointestinal: Negative for abdominal pain, constipation, diarrhea and nausea. Musculoskeletal: Negative for arthralgias, gait problem and myalgias. Neurological: Positive for headaches. Negative for dizziness, tremors and numbness. Past Medical History: Diagnosis Date PVC's (premature ventricular contractions) Heart condition Past Surgical History: Procedure Laterality Date LUMBAR DISCECTOMY 03/02/2017 L3-L4 Dr. Archer SHOULDER ARTHROSCOPY Left 08/14/2010 Dr. Archer Family History Problem Relation Name Age of Onset Heart disease Mother Social History Tobacco Use Smoking status: Never Smokeless tobacco: Never Substance Use Topics Alcohol use: Never Allergies: Patient has no known allergies. Vitals: 04/23/24 0941 BP: 120/74 Pulse: 63 SpO2: 97% Body mass index is 22.65 kg/m . weight: 167 lb Neurologic exam: Mental status: Awake, alert to person, place and time. Recent and remote memory are intact. Language is fluent without aphasia. Attention and concentration are normal. Fund of knowledge is appropriate for level of education. Cranial nerves: CN II: Visual acuity is normal. Visual thornton full to confrontation. CN III, IV, : pupils equal round and reactive to light. Extraocular movements intact. No ptosis present. CN V: Facial sensation is normal. CN VII: Full and symmetric facial movement. CN VIII: Hearing is normal to finger rub bilaterally: CN IX and X: Palate elevates symmetrically. CN XI: Shoulder shrug is normal bilaterally. CN XII: Tongue is midline without atrophy or fasciculation. Motor: RUE Strength deltoid, , biceps , triceps , wrist extensors , wrist flexor , live games dealer strength 5/5. LUE Strength deltoid , biceps , triceps , wrist extensors , wrist flexor , live games dealer strength 5/5. RLE Strength illopsoas, quadriceps, tibialis anterior, and gastrocnemius strength 5/5. LLE Strength illopsoas, quadriceps, tibialis anterior, and gastrocnemius strength 5/5. Normal tone x4 extremities. Bulk is normal. Sensory: Sensation is intact to light touch throughout Four extremities. Reflexes: RUE biceps reflex 2+ brachioradialis reflex 2+ . LUE biceps reflex 2+ brachioradialis reflex 2+ . RLE knee reflex 2+ . LLE knee reflex 2+ . Rodney's sign negative. Coordination: ABNORMAL BILATERALLY Gait: Normal Review and summary of old records: Assessment/Plan Diagnoses and all orders for this visit: Ataxia The patient seems to have subtle ataxia on examination today. Given his recent worsening of headaches and focal exam findings I am certainly concerned that this could be the development of intracranial pathology such as demyelinating disease or mass lesion which could be life-threatening debilitated not correctly identified and treated. Plan: MRI of the brain with and without contrast Paresthesias Patient does complain of paresthesias which seemed to affect the upper and lower extremities. This seems to be worse intermittently but does seem to be a constant phenomenon in the lower extremities. The patient is not alcoholic. The patient does not have diabetes. The patient does not have history of exposure to chemotherapy. The patient does not have a family history of neuropathy. Plan: EMG of the right upper and lower extremity to assess for a generalized process such as neuropathy which could explain symptoms and also to help determine type and severity. Chronic migraine with aura, without status migrainosus, not intractable It is my impression that the patient has chronic migraine. He gets about 15 headache days per month. His neurological examination is unremarkable. He does state that he does get migraine with aura. The patient trialed and failed metoprolol and is now on Ajovy. This does seem to be more helpful. However patient is still having frequent episodes of paresthesias. Plan: Continue metoprolol 25 mg p.o. b.I.d. for now. Side effects discussed. Patient understands and wishes to continue with this treatment. We will see the patient back in approximately 3 weeks. If we still do not have good control of headaches, we will switch him to Ajovy for prevention. I suggest [id number]-kudkluf use of ibuprofen for abortive therapy for headaches. 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 In order to work in this capacity he needs to pass a medical exam with stability of his migraines. We can use preventative CGRP is without restriction. However, abortive CGRP these would result in 36-72 hours of not being able to fly. Rejd-btr-[id number] medications are okay from an abortive perspective for him. His next medical examination is in August so we work towards gaining stability of this condition prior to that appointment. With his ongoing complaints of intermittent paresthesias I have suggested he not fly until we provide clearance. He understands this. He understands the critical and life-threatening importance of this and states he will absolutely comply with the recommendation. He will not fly. Patient is agreeable to the plan. All questions answered. Pt has been fully educated on their diagnosis, treatment options, follow up plan, and return instructions documented in this encounter [facility] 04-02-2024 History of Presen t illness Narrative Nicolás Bell returns to the office today and notes that he has been having facial pressure and eye burning. He has symptoms in his forehead as well. He has been trying refresh eye drops which help a little. The burning is the eyeball more than the skin around the eye. Pseudoephedrine did not help. Saline did not help. He has been having these symptoms for 3-4 months. Pressure changes do not bother it. He has not tried any sprays and has mild nasal airway obstruction in the AM. He is not sure what triggered this episode. He has been having occasional migraine. He has no itch of the nose eyes or ears. His smell is fine. EXAM The patient appears comfortable in the office today. Lungs are clear to auscultation bilaterally. The oral mucosa is pink and healthy without any lesions or ulcers. The palate elevates in the midline. The nasal mucosa is pink and healthy. There is no epistaxis mucopus or nasal polyposis noted. The nasal septum is approximately in the midline. The skin is clear of any lesions, excoriations, or erythema. IMPRESSION: sinus infection - augmentin for 10 days DDM Frank. Try astelin. Follow-up July to assess allergic rhinoconjunctivitis allergen immunotherapy. documented in this encounter [facility] 03-20-2024 History of Presen t illness Narrative Images from the original note were not included. Chief Complaint: headaches Subjective Nicolás Bell, 43 y.o., male Patient presents today for a neurologic consult at the request of Dr. Pearson for migraine. Patient states he has always had headaches. Over the summer he noticed these were becoming stronger and lasting longer. He states these are located at the base of his skull and will radiate to the top of his head. He admits light and sound sensitivity, lightheadedness and aura. He was recently started on rizatriptan and metoprolol which he states has not been helpful. He was just put on these on Tuesday. He was put on a medication as a kid for tension headaches but has not taken that in years. 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 Patient denies any imaging. Review of Systems Constitutional: Negative for appetite change, fatigue and fever. Respiratory: Negative for cough, shortness of breath and wheezing. Cardiovascular: Negative for chest pain, palpitations and leg swelling. Gastrointestinal: Negative for abdominal pain, constipation, diarrhea and nausea. Musculoskeletal: Negative for arthralgias, gait problem and myalgias. Neurological: Positive for headaches. Negative for dizziness, tremors and numbness. Past Medical History: Diagnosis Date PVC's (premature ventricular contractions) Heart condition Past Surgical History: Procedure Laterality Date LUMBAR DISCECTOMY 03/02/2017 L3-L4 Dr. Archer SHOULDER ARTHROSCOPY Left 08/14/2010 Dr. Archer Family History Problem Relation Name Age of Onset Heart disease Mother Social History Tobacco Use Smoking status: Never Smokeless tobacco: Never Substance Use Topics Alcohol use: Never Allergies: Patient has no known allergies. Vitals: 03/20/24 1048 BP: 122/68 Pulse: 58 SpO2: 97% There is no height or weight on file to calculate BMI. Neurologic exam: Mental status: Awake, alert to person, place and time. Recent and remote memory are intact. Language is fluent without aphasia. Attention and concentration are normal. Fund of knowledge is appropriate for level of education. Cranial nerves: CN II: Visual acuity is normal. Visual thornton full to confrontation. CN III, IV, : pupils equal round and reactive to light. Extraocular movements intact. No ptosis present. CN V: Facial sensation is normal. CN VII: Full and symmetric facial movement. CN VIII: Hearing is normal to finger rub bilaterally: CN IX and X: Palate elevates symmetrically. CN XI: Shoulder shrug is normal bilaterally. CN XII: Tongue is midline without atrophy or fasciculation. Motor: RUE Strength deltoid, , biceps , triceps , wrist extensors , wrist flexor , live games dealer strength 5/5. LUE Strength deltoid , biceps , triceps , wrist extensors , wrist flexor , live games dealer strength 5/5. RLE Strength illopsoas, quadriceps, tibialis anterior, and gastrocnemius strength 5/5. LLE Strength illopsoas, quadriceps, tibialis anterior, and gastrocnemius strength 5/5. Normal tone x4 extremities. Bulk is normal. Sensory: Sensation is intact to light touch throughout Four extremities. Reflexes: RUE biceps reflex 2+ brachioradialis reflex 2+ . LUE biceps reflex 2+ brachioradialis reflex 2+ . RLE knee reflex 2+ . LLE knee reflex 2+ . Rodney's sign negative. Coordination: Zrjpxk-pc-[id number] testing and rapid alternating movements are normal Gait: Normal Review and summary of old records: Assessment/Plan Diagnoses and all orders for this visit: Chronic migraine with aura, without status migrainosus, not intractable It is my impression that the patient has chronic migraine. He gets about 15 headache days per month. His neurological examination is unremarkable. He does state that he does get migraine with aura. He was put on metoprolol approximately 6 days ago. He has not really noticed much success yet with this. His most recent episode of headache was 4 days ago. Plan: Continue metoprolol 25 mg p.o. b.I.d. for now. Side effects discussed. Patient understands and wishes to continue with this treatment. We will see the patient back in approximately 3 weeks. If we still do not have good control of headaches, we will switch him to Ajovy for prevention. I suggest gccp-gwx-lamsiqu use of ibuprofen for abortive therapy for headaches. 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 In order to work in this capacity he needs to pass a medical exam with stability of his migraines. We can use preventative CGRP is without restriction. However, abortive CGRP these would result in 36-72 hours of not being able to fly. Oukp-edd-fqnjylv medications are okay from an abortive perspective for him. Metoprolol is okay and does not impose restriction from a preventative perspective. His next medical examination is in August so we work towards gaining stability of this condition prior to that appointment. Patient is agreeable to the plan. All questions answered. Pt has been fully educated on their diagnosis, treatment options, follow up plan, and return instructions documented in this encounter [facility] 02-17-2024 Evaluation note Diagnosis Onset Date Resolution Seasonal allergic rhinitis due to pollen acute February 17, 2024 10:56am Migraine headache with aura acute March 13 2:12pm Seasonal allergic rhinitis due to pollen acute March 13, 2024 2:12pm Migraine headache with aura acute April 24 9:21am Paresthesias acute April 9:21am Seasonal allergic rhinitis due to pollen acute April 112024 9:21am Wellness examination acute 2024 9:21am [facility] Work Phone: [phone]) 229-320301-26-2024 Evaluation note* Encounter Date Diagnosis Assessment Notes Treatment Notes Treatment Clinical Notes Apr, Seasonal allergic rhinitis due to pollen (ICD-10 - J30.1) [facility] Other 12-24-2023 Evaluation note* Encounter Date Diagnosis Assessment Notes Treatment Notes Treatment Clinical Notes Mar, Contact with and (suspected) exposure to covid-19 (ICD-10 - Z20.822) Mar, COVID-19 (ICD-10 - U07.1) Discharge Instructions for COVID-19 (Suspected or Confirmed ) material was printed Drink plenty fluids, get plenty of rest. Take Tylenol or Motrin as needed for aches pains or fevers. You must quarantine for 5 days after the onset of your symptoms of COVID. Follow-up with your family physician if no improvement in 2 to 3 days [facility] Other 12-08-2023 Evaluation note* Encounter Date Diagnosis Assessment Notes Treatment Notes Treatment Clinical Notes Mar, Seasonal allergic rhinitis due to pollen (ICD-10 - J30.1) [facility] Other 11-10-2023 Evaluation note* Encounter Date Diagnosis Assessment Notes Treatment Notes Treatment Clinical Notes Feb, Seasonal allergic rhinitis due to pollen (ICD-10 - J30.1) [facility] Other 10-19-2023 Evaluation note* Encounter Date Diagnosis Assessment Notes Treatment Notes Treatment Clinical Notes Jan, Wellness examination (ICD-10 - Z00.00) Healthy diet and exercise. Reviewed age-appropriate preventive testing recommended. Jan, Acute nonseasonal allergic rhinitis due to pollen (ICD-10 - J30.1) Symptoms tolerable Continue allergy shots x 10 years Jan, Gastro-esophageal reflux disease with esophagitis, without bleeding (ICD-10 - K21.00) Diet instructions: Smaller portions, avoid eating and laying flat, avoid eating or drinking prior to bedtime. Weight loss. Continue PPI Jan, Spondylosis without myelopathy or radiculopathy, lumbar region (ICD-10 - M47.816) The patient is instructed to avoid bending, twisting or lifting. They are to use intermittent heat and ice as needed. They may schedule a massage or gentle manipulation. They may safely use Tylenol as needed. 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 Asymptomatic Completely evaluated in past w/o restrictions. [facility] Other 09-29-2023 Evaluation note* Encounter Date Diagnosis Assessment Notes Treatment Notes Treatment Clinical Notes Dec, Seasonal allergic rhinitis due to pollen (ICD-10 - J30.1) [facility] Other 08-18-2023 Evaluation note* Encounter Date Diagnosis Assessment Notes Treatment Notes Treatment Clinical Notes Nov, Seasonal allergic rhinitis due to pollen (ICD-10 - J30.1) [facility] Other 07-28-2023 Evaluation note* Encounter Date Diagnosis Assessment Notes Treatment Notes Treatment Clinical Notes Oct, Seasonal allergic rhinitis due to pollen (ICD-10 - J30.1) [facility] Other 06-05-2023 Evaluation note* Encounter Date Diagnosis Assessment Notes Treatment Notes Treatment Clinical Notes Sep, Acute nonseasonal allergic rhinitis due to pollen (ICD-10 - J30.1) [facility] Other 05-08-2023 Evaluation note* Encounter Date Diagnosis Assessment Notes Treatment Notes Treatment Clinical Notes August, Acute recurrent maxillary sinusitis (ICD-10 - J01.01) Instructed to use Robitussin or Mucinex for cough, saline or Flonase NS for congestion, Tylenol for pain and fever. August, Seasonal allergic rhinitis due to pollen (ICD-10 - J30.1) Continue Ebonie, Flonase and saline rinse [facility] Other 04-18-2023 Evaluation note* Encounter Date Diagnosis Assessment Notes Treatment Notes Treatment Clinical Notes Jul, Acute nonseasonal allergic rhinitis due to pollen (ICD-10 - J30.1) [facility] Other 04-11-2023 Evaluation note* Encounter Date Diagnosis Assessment Notes Treatment Notes Treatment Clinical Notes Jul, Acute recurrent maxillary sinusitis (ICD-10 - J01.01) Instructed to use Robitussin or Mucinex for cough, saline or Flonase NS for congestion, Tylenol for pain and fever. Jul, Seasonal allergic rhinitis due to pollen (ICD-10 - J30.1) Continue Claritin and Flonase [facility] Other 03-01-2023 Evaluation note* Encounter Date Diagnosis Assessment Notes Treatment Notes Treatment Clinical Notes Jun, Acute nonseasonal allergic rhinitis due to pollen (ICD-10 - J30.1) [facility] Other 02-07-2023 Evaluation note* Encounter Date Diagnosis Assessment Notes Treatment Notes Treatment Clinical Notes May, Acute nonseasonal allergic rhinitis due to pollen (ICD-10 - J30.1) [facility] Other 01-10-2023 Evaluation note* Encounter Date Diagnosis Assessment Notes Treatment Notes Treatment Clinical Notes Apr, Acute nonseasonal allergic rhinitis due to pollen (ICD-10 - J30.1) [facility] Other 11-01-2017 History general Narrative - Reported* Type Description Date Medical History Gastro-esophageal re flux disease with esophagitis, without bleeding Medical History MVP (mitral valve prolapse) Medical History Asymptomatic PVCs Medical History Idiopathic thrombocytopenia Surgical History Lumbar discectomy 02/2017 Surgical History Vasectomy 07/2018 [facility] Other Evaluation noteNo [facility] Other evaluation [facility] Other Evaluation [facility] Other evaluation noteNo assessment information available [facility] Work Phone: Evaluation note* Diagnosis Onset Date Resolution Status Seasonal allergic rhinitis due to pollen acute Seasonal allergic rhinitis due to pollen acute [facility] Work Phone: Evaluation note* Diagnosis Onset Date Resolution Status Seasonal allergic rhinitis due to pollen acute [facility] Work Phone: Evaluation note* Diagnosis Onset Date Resolution Status Seasonal allergic rhinitis due to pollen acute Seasonal allergic rhinitis due to pollen acute Acute sinusitis noneactive [facility] Work Phone: Evaluation note* Diagnosis Onset Date Resolution Status Seasonal allergic rhinitis due to pollen acute Acute sinusitis noneactive [facility] Work Phone: Evaluation note* Diagnosis Onset Date Resolution Status Seasonal allergic rhinitis due to pollen acute Acute sinusitis noneactive Seasonal allergic rhinitis due to pollen acute [facility] Work Phone: Evaluation note* Diagnosis Chronic migraine with aura and with status migrainosus, not intractable (CMS/HCC)- Primary documented in this encounter [facility]* Diagnosis Acute maxillary sinusitis, 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- Primary documented in this encounter [facility]* Diagnosis Ataxia- Primary Lack of coordination Paresthesia Disturbance of skin sensation Chronic migraine with aura and with status migrainosus, not intractable (CMS/HCC) documented in this encounter [facility]* Diagnosis Paresthesia Disturbance of skin sensation documented in this encounter [facility] Other History general [facility] - [facility] Other History general Narrative - Reported* Type Description Date Medical History Gastro-esophageal re flux disease with esophagitis, without bleeding Medical History MVP (mitral valve prolapse) Medical History Asymptomatic PVCs Medical History Idiopathic thrombocytopenia Surgical History Lumbar discectomy L3-4 02/2017 Surgical History Vasectomy 07/2018 Hospitalization History SEE SURGICAL HX Clarissa [facility] Other Reason for visit Narrative* Consultation (Routine) - Closed Specialty Diagnoses / Procedures Referred By Contac t Referred To Contact Neurology Diagnoses Migraine with aura, not intractable, without status migrainosus (CMS/HCC) Procedures [facility] OFFICE/OUTPATIENT [facility] Arjun Pearson MD [address] [place] [address] Phone: tel: fax: Darryl Wasserman MD [address] [place] [address] Phone: tel: fax: Referral ID Status Reason Start Date Expiration Date V isits Requested Visits Authorized [id number] Closed Consult and Treat 03/15/2024 09/11/2024 1 1 [facility] Summary Purpose Family History Relationship Condition Age at Onset Recorded Date/T navneet father Heart disease Unknown Relationship Condition Age at Onset Recorded Date/T navneet father Heart disease Unknown mother Myocardial infarction Unknown Advance Directives Advance Directive Response Recorded Date/ Time Advance Directives No May 10:57am Advance Directive Response Recorded Date/ Time Advance Directives No May 11:57am Chief Complaint and Reason for Visit Chief Complaint Covid Test, Runny No se, Sore Throat Allergy Shot Chief Complaint Covid Test, Runny No se, Sore Throat Allergy Shot Allergy Shot Allergy Shot Allergy Shot Allergy Shot Allergy Shot Reason for Visit Seasonal allergic rh initis due to pollen Seasonal allergic rhinitis due to pollen Chief Complaint Allergy Shot Allergy Shot Allergy Shot Allergy Shot Allergy Shot Allergy Shot Allergy Shot Reason for Visit Seasonal allergic rh initis due to pollen Seasonal allergic rhinitis due to pollen Chief Complaint Allergy Shot Allergy Shot Allergy Shot Allergy Shot Allergy Shot Allergy Shot Allergy Shot allergy shot Reason for Visit Seasonal allergic rh initis due to pollen Seasonal allergic rhinitis due to pollen Chief Complaint Allergy Shot Allergy Shot Allergy Shot Allergy Shot Allergy Shot Allergy Shot Allergy Shot allergy shot ALLERGY SHOT Reason for Visit Seasonal allergic rh initis due to pollen Seasonal allergic rhinitis due to pollen Chief Complaint Allergy Shot Allergy Shot Allergy Shot Allergy Shot Allergy Shot Allergy Shot Allergy Shot allergy shot ALLERGY SHOT allergy shot Reason for Visit Seasonal allergic rh initis due to pollen Seasonal allergic rhinitis due to pollen Chief Complaint Allergy Shot Allergy Shot Allergy Shot Allergy Shot Allergy Shot Allergy Shot Allergy Shot allergy shot ALLERGY SHOT allergy shot ALLERGY SHOT Reason for Visit Seasonal allergic rh initis due to pollen Seasonal allergic rhinitis due to pollen Chief Complaint Allergy Shot Allergy Shot Allergy Shot Allergy Shot Allergy Shot Allergy Shot Allergy Shot allergy shot ALLERGY SHOT allergy shot ALLERGY SHOT allergy shot Reason for Visit Seasonal allergic rh initis due to pollen Seasonal allergic rhinitis due to pollen Chief Complaint Allergy Shot Allergy Shot Allergy Shot Allergy Shot Allergy Shot Allergy Shot allergy shot ALLERGY SHOT allergy shot ALLERGY SHOT allergy shot allergy shot Reason for Visit Seasonal allergic rh initis due to pollen Chief Complaint Allergy Shot Allergy Shot Allergy Shot Allergy Shot Allergy Shot allergy shot ALLERGY SHOT allergy shot ALLERGY SHOT allergy shot allergy shot sinus infection [phone] Reason for Visit Seasonal allergic rh initis due to pollen Seasonal allergic rhinitis due to pollen Acute sinusitis Chief Complaint Allergy Shot Allergy Shot Allergy Shot allergy shot ALLERGY SHOT allergy shot ALLERGY SHOT allergy shot allergy shot sinus infection [phone] allergy shot Reason for Visit Seasonal allergic rh initis due to pollen Acute sinusitis Chief Complaint Allergy Shot Allergy Shot allergy shot ALLERGY SHOT allergy shot ALLERGY SHOT allergy shot allergy shot sinus infection [phone] allergy shot allergy shot Reason for Visit Seasonal allergic rh initis due to pollen Acute sinusitis Chief Complaint Allergy Shot allergy shot ALLERGY SHOT allergy shot ALLERGY SHOT allergy shot allergy shot sinus infection [phone] allergy shot allergy shot allergy shot Reason for Visit Seasonal allergic rh initis due to pollen Acute sinusitis Chief Complaint Allergy Shot allergy shot ALLERGY SHOT allergy shot ALLERGY SHOT allergy shot allergy shot sinus infection [phone] allergy shot allergy shot allergy shot allergy shot Reason for Visit Seasonal allergic rh initis due to pollen Acute sinusitis Chief Complaint Allergy Shot allergy shot ALLERGY SHOT allergy shot ALLERGY SHOT allergy shot allergy shot sinus infection [phone] allergy shot allergy shot allergy shot allergy shot allergy shot Reason for Visit Seasonal allergic rh initis due to pollen Acute sinusitis Chief Complaint allergy shot ALLERGY SHOT allergy shot allergy shot sinus infection [phone] allergy shot allergy shot allergy shot allergy shot allergy shot allergy shot Reason for Visit Seasonal allergic rh initis due to pollen Acute sinusitis Chief Complaint allergy shot allergy shot sinus infection [phone] allergy shot allergy shot allergy shot allergy shot allergy shot allergy shot allergy shots Reason for Visit Seasonal allergic rh initis due to pollen Acute sinusitis Seasonal allergic rhinitis due to pollen Chief Complaint allergy shot sinus infection [phone] allergy shot allergy shot allergy shot allergy shot allergy shot allergy shot allergy shots allergy shot Reason for Visit Seasonal allergic rh initis due to pollen Acute sinusitis Seasonal allergic rhinitis due to pollen Chief Complaint sinus infection allergy shot allergy shot allergy shot allergy shot allergy shot allergy shot allergy shots allergy shot Allergy Shot Reason for Visit Seasonal allergic rh initis due to pollen Acute sinusitis Seasonal allergic rhinitis due to pollen Chief Complaint allergy shot allergy shot allergy shot allergy shot allergy shot allergy shots allergy shot Allergy Shot allergy shot Reason for Visit Seasonal allergic rh initis due to pollen Chief Complaint allergy shot allergy shot allergy shot allergy shot allergy shots allergy shot Allergy Shot allergy shot allergy shot Reason for Visit Seasonal allergic rh initis due to pollen Chief Complaint allergy shot allergy shot allergy shot allergy shots allergy shot Allergy Shot allergy shot allergy shot allergy shots Reason for Visit Seasonal allergic rh initis due to pollen Chief Complaint allergy shot allergy shots allergy shot Allergy Shot allergy shot allergy shot allergy shots allergy shot Reason for Visit Seasonal allergic rh initis due to pollen Chief Complaint allergy shots allergy shot Allergy Shot allergy shot allergy shot allergy shots allergy shot allergy shot Chief Complaint Admit Date Allergy Shot December 02, 2023 10 :06am allergy shot December 16, 2023 1:00pm allergy shot December 27, 2023 10:05am allergy shots January 09, 2024 9:34am allergy shot January 23, 2024 1 0:12am allergy shot February 06, 2024 1 0:16am allergy shot February 17, 2024 1 0:56am Chief Complaint Admit Date allergy shot February 06, 2024 1 0:16am allergy shot February 17, 2024 1 0:56am allergy shot March 02, 2024 10:17am migraines for a few month March 13, 2024 2:12pm allergy shot March 16, 2024 1 1:11am allergy shot March 30, 2024 11:09am wellness April 24, 2024 9 :21am Reason for Visit Admit Date Seasonal allergic rhinitis due to pollen February 17, 2024 10:56am Migraine headache with aura March 2:12pm Seasonal allergic rhinitis due to pollen March 13, 2024 2:12pm Migraine headache with aura April 9:21am Paresthesias April 24, 2024 9 :21am Seasonal allergic rhinitis due to pollen April 24, 2024 9:21am Wellness examination April 24, 2024 9:21am Additional Source Comments (unrecognized sect ion and content) No Status Records FoundNo Status Records FoundNo Status Records Found INFORMATION SOURCE (unrecogn ized section and content) DATE CREATED AUTHOR 09/29/2017 [facility] DATE CREATED AUTHOR AUTHOR'S ORGANIZ ATION 01/06/2022 [facility] DATE CREATED AUTHOR AUTHOR'S ORGANIZ ATION 04/04/2024 [facility] EPIC REASON FOR VISIT (unrecogniz ed section and content) Reason Comments Follow-up No surgeries; no hos pital stays. Pt states he has been having a lot of sinus pressure and red, itchy eyes, for the last couple of months. Care Teams (unrecognized sec tion and content) Team Status: Active Member Role Status Dates Arjun Pearson DO Primary Care Provider Active Team Status: Inactive Member Role Status Dates BENNY Cotto Attending Provider Active S tart: April 03, 2023 End: April 03, 2023 Team Status: Inactive Member Role Status Earl Pearson DO Primary Care Provide r, Attending Provider Active Start: June 03, 2023 End: June 03, 2023 Team Status: Inactive Member Role Status Earl Pearson DO Primary Care Provide r, Attending Provider Active Start: June 06, 2023 End: June 06, 2023 Team Status: Inactive Member Role Status Earl Pearson DO Primary Care Provide r, Attending Provider Active Start: June 10, 2023 End: June 10, 2023 Team Status: Inactive Member Role Status Earl Pearson DO Primary Care Provide r, Attending Provider Active Start: June 13, 2023 End: June 13, 2023 Team Status: Inactive Member Role Status Earl Pearson DO Primary Care Provide r, Attending Provider Active Start: June 20, 2023 End: June 20, 2023 Team Status: Inactive Member Role Status Earl Pearson DO Primary Care Provide r, Attending Provider Active Start: June 29, 2023 End: June 29, 2023 Team Status: Inactive Member Role Status Earl Pearson DO Primary Care Provide r, Attending Provider Active Start: July 20, 2023 End: July 20, 2023 Team Status: Inactive Member Role Status Earl Pearson DO Primary Care Provide r, Attending Provider Active Start: July 22, 2023 End: July 22, 2023 Team Status: Inactive Member Role Status Earl Pearson DO Primary Care Provide r, Attending Provider Active Start: July 29, 2023 End: July 29, 2023 Team Status: Inactive Member Role Status Earl Pearson DO Primary Care Provider Active Start: August 02, 2023 End: August 02, 2023 Carolina Gonzalez APRN GRAIN OILSEED OR PASTURE GROWER-C Attending Provider Act roderick Start: August 02, 2023 End: August 02, 2023 Team Status: Inactive Member Role Status Dates Arjun Pearson DO Primary Care Provide r, Attending Provider Active Start: August 12, 2023 End: August 12, 2023 Team Status: Inactive Member Role Status Earl Pearson DO Primary Care Provide r, Attending Provider Active Start: August 22, 2023 End: August 22, 2023 Team Status: Inactive Member Role Status Earl Pearson DO Primary Care Provide r, Attending Provider Active Start: August 30, 2023 End: August 30, 2023 Team Status: Inactive Member Role Status Earl Pearson DO Primary Care Provide r, Attending Provider Active Start: September 07, 2023 End: September 07, 2023 Team Status: Inactive Member Role Status Earl Pearson DO Primary Care Provide r, Attending Provider Active Start: September 12, 2023 End: September 12, 2023 Team Status: Inactive Member Role Status Earl Pearson DO Primary Care Provide r, Attending Provider Active Start: September 22, 2023 End: September 22, 2023 Team Status: Inactive Member Role Status Earl Pearson DO Primary Care Provide r, Attending Provider Active Start: September 30, 2023 End: September 30, 2023 Team Status: Inactive Member Role Status Earl Pearson DO Primary Care Provide r, Attending Provider Active Start: October 11, 2023 End: October 11, 2023 Team Status: Inactive Member Role Status Earl Pearson DO Primary Care Provide r, Attending Provider Active Start: October 17, 2023 End: October 17, 2023 Team Status: Inactive Member Role Status Earl Pearson DO Primary Care Provider Active Start: October 28, 2023 End: October 28, 2023 Veronica Jacobson MD Attending Provider Active St art: October 28, 2023 End: October 28, 2023 Team Status: Inactive Member Role Status Earl Pearson DO Primary Care Provide r, Attending Provider Active Start: November 11, 2023 End: November 11, 2023 Team Status: Inactive Member Role Status Earl Pearson DO Primary Care Provide r, Attending Provider Active Start: November 25, 2023 End: November 25, 2023 Team Status: Inactive Member Role Status Earl Pearson DO Primary Care Provide r, Attending Provider Active Start: December 02, 2023 End: December 02, 2023 Team Status: Inactive Member Role Status Dates Arjun Pearson DO Primary Care Provide r, Attending Provider Active Start: December 16, 2023 End: December 16, 2023 Team Status: Inactive Member Role Status Dates Arjun Pearson DO Primary Care Provide r, Attending Provider Active Start: December 27, 2023 End: December 27, 2023 Team Status: Inactive Member Role Status Dates Arjun Pearson DO Primary Care Provide r, Attending Provider Active Start: January 09, 2024 End: January 09, 2024 Team Status: Inactive Member Role Status Dates Arjun Pearson DO Primary Care Provide r, Attending Provider Active Start: January 23, 2024 End: January 23, 2024 Team Status: Inactive Member Role Status Dates Arjun Pearson DO Primary Care Provide r, Attending Provider Active Start: February 06, 2024 End: February 06, 2024 Team Status: Inactive Member Role Status Dates Arjun Pearson DO Primary Care Provider Active Start: February 17, 2024 End: February 17, 2024 Veronica Jacobson MD Attending Provider Active St art: February 17, 2024 End: February 17, 2024 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 Relationship Specialty Start Date End Date Arjun Pearson MD [address] [place] [id number] PCP - General Internal Medicine 03/15/24 [employer]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 Relationship Specialty Start Date End Date Arjun Pearson MD [address] [place] [id number] PCP - General Internal Medicine 03/15/24 [employer]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 Relationship Specialty Start Date End Date Arjun Pearson MD [address] [place] [id number] PCP - General Internal Medicine 03/15/24 Under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 Relationship Specialty Start Date End Date Arjun Pearson MD [address] [place] [id number] PCP - General Internal Medicine 03/15/24 Team Status: Inactive Member Role Status Dates Arjun Pearson , Primary Care Provide r, Attending Provider Active Start: March 02, 2024 End: March 02, 2024 Team Status: Inactive Member Role Status Dates Arjun Pearson , DO Primary Care Provide r, Attending Provider Active Start: March 13, 2024 End: March 13, 2024 Team Status: Inactive Member Role Status Dates Arjun Pearson DO Primary Care Provide r, Attending Provider Active Start: March 16, 2024 End: March 16, 2024 Veronica Jacobson MD Active Start: 2023 End: March 16, 2024 Team Status: Inactive Member Role Status Dates Arjun Pearson DO Primary Care Provide r, Attending Provider Active Start: March 30, 2024 End: March 30, 2024 Team Status: Inactive Member Role Status Dates Arjun Pearson , DO Primary Care Provide r, Attending Provider Active Start: April 24, 2024 End: April 24, 2024 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 This clinical summary was aggregated from multiple sources. Caution should be exercised in using it in the provision of clinical care. This summary normalizes information from multiple sources, and as a consequence, information in this document may materially change the coding, format and clinical context of patient data. In addition, data may be omitted in some cases. CLINICAL DECISIONS SHOULD BE BASED ON THE PRIMARY CLINICAL RECORDS. [facility] [employer] [facility] provides no warranty or guarantee of the accuracy or completeness of information in this document.
[2024-04-25 06:45] LABS: Basophils Absolute Auto 0.1 10^3/uL (0.0-0.1); Basophils Percent Auto 0.9 % (0.2-2.0); Eosinophils Absolute Auto 0.2 10^3/uL (0.0-0.7); Hemoglobin 15.2 g/dL (14.0-18.0); Immature Granulocytes Abs Auto 0.01 10^3/uL (0.00-0.03); Immature Granulocytes Pct Auto 0.2 % (0.0-0.5); Lymphocytes Absolute Auto 2.1 10^3/uL (1.2-3.8); Lymphocytes Percent Auto 32.9 % (20.5-60.0); Mean Corpuscular HGB Conc 33.8 g/dL (29.9-35.2); Mean Corpuscular Hemoglobin 30.8 pg (25.9-34.0); Mean Corpuscular Volume 91.3 fL (80.0-94.0); Mean Platelet Volume 9.3 fL (9.5-13.5); Monocytes Absolute Auto 0.5 10^3/uL (0.3-0.8); Monocytes Percent Auto 7.1 % (1.7-12.0); Neutrophils Absolute Auto 3.5 10^3/uL (1.4-6.5); Neutrophils Percent Auto 55.9 % (43.0-75.0); Platelet Count 146 10^3/uL (150-450); Red Blood Count 4.93 10^6/uL (4.70-6.10); Red Cell Distribution Width 12.3 % (11.0-15.0); White Blood Count 6.3 10^3/uL (4.0-11.0)
[2024-04-25 07:57] LABS: Anion Gap 11.6; BUN Creatinine Ratio 13.8; Carbon Dioxide 31.4 mmol/L (21.0-32.0); Chloride 105 mmol/L (98-107); Estimated GFR (African America >60 (>=60 mL/min/1.73m^2); Estimated GFR (Non-African Ame >60 (>=60 mL/min/1.73m^2); Glucose 91 mg/dL (74-106); Sodium 144 mmol/L (136-145)
[2024-04-25 07:58] LABS: Alanine Aminotransferase 27 U/L (16-63); Albumin Globulin Ratio 1.3; Albumin Level 4.1 g/dL (3.4-5.0); Alkaline Phosphatase 70 U/L (46-116); Aspartate Amino Transferase 18 U/L (15-37); Bilirubin Total 0.8 mg/dL (0.2-1.0); Globulin 3.1 g/dL; Total Protein 7.2 g/dL (6.4-8.2); Triglycerides 115 mg/dL (<=150)
[2024-04-25 07:59] LABS: Chol HDL Ratio 3.1; Cholesterol 174 mg/dL (<=200); HDL Cholesterol 56 mg/dL (40-60); Thyroid Stimulating Hormone 2.399 uIU/mL (0.358-3.740)
[2024-04-26 08:12] LABS: Vitamin B12 571 pg/mL (232-1245)
[2024-04-27 16:11] LABS: Alpha-1-Globulin 0.2 g/dL (0.0-0.4); Alpha-2-Globulin 0.6 g/dL (0.4-1.0); Free Lambda Lt Chains,S 7.7 mg/L (5.7-26.3); Gamma Globulin 0.8 g/dL (0.4-1.8); Immunoglobulin A, Qn, Serum 88 mg/dL (90-386); Immunoglobulin G, Qn, Serum 869 mg/dL (603-1613); Immunoglobulin M, Qn, Serum 51 mg/dL (20-172); Kappa/Lambda Ratio,S 1.04 (0.26-1.65); Protein, Total 6.5 g/dL (6.0-8.5)
== END 2024-04-25 06:35 | disposition home or self-care (01) ==
LOC: LAB 06:34
PROVIDERS: PCP Internal Medicine; Visit Provider Internal Medicine
DX: Z00.00 Encounter for general adult medical examination without abnormal findings (principal); R20.2 Paresthesia of skin; G43.109 Migraine with aura, not intractable, without status migrainosus; R53.83 Other fatigue
CPT/HCPCS: 36415; 80053; 80061; 82607; 82728; 82746; 82784; 83521; 84155; 84165; 84443; 85025